=== PATIENT | male | born 1960 | race Caucasian/White ===

== ENCOUNTER 2020-06-01 12:59 | Emergency (ER) | payer OTHER, SELFPAY ==
[2020-06-01 13:01] VITALS: BP 147/83; PULSE 71; RESP 18; TEMP 36.9; O2SAT 98; BMI 23.3
--- NOTE | 2020-06-01 14:00 | ED.VIS.INJ ---
History of Present Illness Chief Complaint: Trauma Informant: Patient Onset: Hours Mechanism/Context: Blunt Injury, Work Related Quality of Pain: Dull Location: Nose Current Severity: Gone Maximum Severity: Severe Worsened by: Initial injury Relieved by: Nothing Associated Symptoms: Negative for: Parasthesias, Weakness, Loss of function, Loss of consciousness Narrative: Patient is a 60-year-old male who injured his nose at work. He was using a crankshaft grinder. The crankshaft grinder slipped and he sustained a laceration through the tip of his nose and lateral aspect of the left naris. He denies pain presently. He denies bleeding presently. He denies drainage. He denies change in vision. He denies malalignment of his teeth. Last tetanus shot was 1 year ago. He has no other complaints. Tetanus Immunization: <5 years Prior similar symptoms: No Recent Illness/Hospitalization: No - Past Medical History (1) History of cardiac dysrhythmia Status: Acute Past Medical History - Allergies and Home Meds Allergies/Adverse Reactions: Allergies Penicillins [PCN] Allergy (Verified 06/01/20 13:01) Peter Primary Care Physician: ,[facility] PHYSICIANS] - 2 Days for wound check NOT,DEFINED [Primary Care Provider] - Prior records reviewed: No Surgical History: noncontributory Lives: Spouse/ Significant Other Smoking Status: Smoker, status unknown Alcohol: None Drugs: None Review of Systems General: Denies: Chills, Fever Eyes: Denies: Visual changes - bilaterally, Blurred Vision - bilaterally ENT: Reports: - - Deformity to nose. Denies: Bilateral ear pain, Right ear pain, Rhinorrhea, Sore throat Cardiovascular: Denies: Chest pain, Palpitations Gastrointestinal: Denies: Vomiting Skin: Reports: Wounds. Denies: Rash, Abrasions Neurological: Denies: Weakness, Parasthesia, Numbness Hematologic: Denies: Easy bruising, Easy bleeding Allergy: Denies: Swelling of the mouth, Swelling of the tongue Physical Exam Vital Signs/Narrative: Vital Signs Temp Pulse Resp BP Pulse Ox 06/01/20 13:01 98.5 F 71 18 147/83 H 98 Inital Vital Signs reviewed: Yes General: Well nourished, Well developed Head: Normocephalic, Atraumatic. Negative for: Trauma Eyes: Perrl, EOMI, - - Is no subconjunctival hemorrhage.. Negative for: Pale conjunctiva, Scleral icterus ENT: No trauma, Nasal trauma. Negative for: Otorrhea, Nasal septal hematoma Neck: Nontender, Full ROM Cardiovascular: Regular rate, Regular rhythm, No murmurs Respiratory: No distress, CTA bilaterally Skin: Normal color, Trauma Neurological: Alert, Oriented x3, Cranial nerves II-XII grossly intact, Normal Gait Psychological: Normal affect - Glascow Coma Scale Eye Opening: Spontaneous Motor: Obeys Commands Verbal: Oriented Coma Scale Total: 15 Diagnostic/Tx/Re-eval - Medical Decision Making She has a laceration involving his left naris. There is a injury medial aspect that goes to the tip. Laterally. The left naris is deformed for this reason. 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 There is no injury to the vermilion border, vermilion portion of the upper lip or teeth. Please read procedure note Procedures Procedure(s): Laceration repair left naris: Medial aspect of the laceration measured 1.2 cm. Lateral aspect measured 2.2 cm. An infraorbital nerve block was placed with good anesthesia of the lateral aspect of the naris. Patient complained of slight discomfort at the tip. This was anesthetized by local infiltration using 1% lidocaine. The laceration was irrigated with 250 cc of normal saline. The medial aspect of the laceration was sutured using 6-0 Ethilon. A total of 5 stitches was placed. The lateral aspect was closed using 6-0 Ethilon and a total of 8 sutures were placed. 2 were in the vestibule. ED Disposition - Plan for ED Patient: Disposition: Home or Assisted Living Diagnosis: Laceration of nose, complex Instructions: ED Laceration, Face: Stitches or Tape Referrals: NOT,DEFINED [Primary Care Provider] - [facility] [[facility] PHYSICIANS] - 2 Days for wound check Additional Instructions: 1. Keep area clean and dry 2. Apply bacitracin ointment 3 times a day 3. Sutures may be removed in 5 to 7 days
[2020-06-01] MEDS: Lidocaine 1% (20 ml mdv) 20 ML Vial INFILT (15:00)
[2020-06-01 15:07] VITALS: BP 175/109; PULSE 77; RESP 16; O2SAT 98
== END 2020-06-01 15:41 | disposition home or self-care (01) ==
LOC: ED 14:52
PROVIDERS: Emergency Provider Emergency Medicine
DX: S01.21XA Laceration without foreign body of nose, initial encounter (principal); F17.200 Nicotine dependence, unspecified, uncomplicated; X58.XXXA Exposure to other specified factors, initial encounter
CPT/HCPCS: 13152; 99284